=== PATIENT | female | born 1990 | race Hispanic/Latino ===

== ENCOUNTER 2017-10-10 09:34 | Emergency (ER) | payer SELFPAY | END 2017-10-10 10:09 | disposition home or self-care (01) | LOC: ERS 09:34 | DX: Z30.9 Encounter for contraceptive management, unspecified (principal) | CPT/HCPCS: 99283 ==

== ENCOUNTER 2018-04-30 00:48 | Emergency (ER) | payer OTHER, SELFPAY ==
[2018-04-30 01:09] LABS: Lavender RECEIVED; Red RECEIVED
[2018-04-30 01:12] LABS: #Lymphocytes 2.6 thou/uL (1.20-3.40); #Monocytes 0.5 thou/uL (0.11-0.59); %Basophils 0.2 % (0.0-1.0); %Eosinophils 0.1 % (0.0-10.0); %Lymphocytes 25.6 % (21.0-51.0); %Monocytes 4.8 % (0.0-10.0); %Neutrophils 69.2 % (42.0-75.0); Hemoglobin 13.4 g/dL (12.0-16.0); Mean Corpuscular HGB CONC 32.9 g/dL (32.0-36.0); Mean Corpuscular Hemoglobin 30.4 pg (27.0-31.0); Mean Corpuscular Volume 92.5 fL (78.0-98.0); Mean Platelet Volume 7.9 fL (7.4-10.4); Platelet Count 257 thou/uL (130-400); RBC Distribution Width 11.6 % (11.5-14.5); Red Blood Cell (RBC) Count 4.39 mill/uL (4.20-5.40); White Blood Cell (WBC) Count 10.2 thou/uL (4.8-10.8)
[2018-04-30 01:42] LABS: ALT (SGPT) 15 U/L (8-55); AST (SGOT) 18 U/L (5-34); Albumin 4.3 g/dL (3.5-5.0); Alkaline Phosphatase 73 U/L (40-150); Anion Gap 15 mmol/L (10-20); BUN (Urea Nitrogen) Less than 4 mg/dL (7.0-18.7); Bilirubin, Total 0.3 mg/dL (0.2-1.2); Calc. Creatinine Clearance 0 mL/min (70-130); Calcium 9.3 mg/dL (7.8-10.44); Carbon Dioxide 24 mmol/L (22-29); Chloride 109 mmol/L (98-107); Estimated GFR-MDRD Greater than 90; Globulin 3.3 g/dL (2.4-3.5); Glucose 104 mg/dL (70-105); Lipase 7 U/L (8-78); Potassium 3.5 mmol/L (3.5-5.1); Protein, Total 7.6 g/dL (6.0-8.3); Sodium 144 mmol/L (136-145)
[2018-04-30] MEDS ORDERED: Ibuprofen 800 MG TAB ONE (02:21)
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
[2018-04-30] MEDS ORDERED: ISOVUE-370 76%-LOCM 1 ML ONE (12:44)
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
== END 2018-04-30 02:36 | disposition home or self-care (01) ==
LOC: ERS 00:48
DX: F10.129 Alcohol abuse with intoxication, unspecified (principal); V43.52XA Car driver injured in collision with other type car in traffic accident, initial encounter
CPT/HCPCS: 36415; 70450; 71045; 71260; 72125; 72170; 74177; 80053; 83690; 85025; 96360; Q9966

== ENCOUNTER 2025-02-07 22:41 | Emergency (ER) | payer OTHER | END 2025-02-08 00:50 | disposition home or self-care (01) | LOC: ERS 22:41 | DX: S06.0X0A Concussion without loss of consciousness, initial encounter (principal); S52.571A Other intraarticular fracture of lower end of right radius, initial encounter for closed fracture; V00.131A Fall from skateboard, initial encounter | CPT/HCPCS: 29125; 70450; 96374; 96375; J2060; J3010 ==